=== PATIENT | female | born 2000 | race Two or more races ===

== ENCOUNTER 2022-05-18 15:46 | Emergency (ER) | payer OTHER, SELFPAY ==
[2022-05-18 16:36] VITALS: BP 138/68; PULSE 71; RESP 14; TEMP 37; O2SAT 100
--- NOTE | 2022-05-18 19:43 | ED.GENADULT ---
HPI - General Adult General Chief complaint: Fall Stated complaint: Fall at work Time Seen by Provider: 05/18/22 19:25 History of Present Illness HPI narrative: Patient a 21-year-old female who presents emergency department with chief complaint of head injury. The patient reports she was at work earlier this afternoon slipped fell struck her head on the floor. The patient reports no lacerations no bleeding denies loss of consciousness patient reports she was a little sore afterwards but reports that any discomfort has gone away. Patient reports no nausea no vomiting patient reports that she is not uncomfortable Related Data Home Medications Medication Instructions Recorded Confirmed Adult Multivitamin Extra VitD3 DAILY 05/18/22 citalopram DAILY 05/18/22 cyanocobalamin (vitamin B-12) 5,000 mcg sublingual DAILY 05/18/22 05/18/22 5,000 mcg sublingual tablet (Vitamin B-12) hydrochlorothiazide 12.5 mg tablet 12.5 mg PO DAILY 05/18/22 05/18/22 losartan 50 mg tablet mg DAILY 05/18/22 metoprolol succinate 50 mg mg PO DAILY 05/18/22 tablet,extended release 24 hr oxybutynin chloride DAILY 05/18/22 Allergies Allergy/AdvReac Type Severity Reaction Status Date / Time No Known Allergies Allergy Unknown Unverified 05/18/22 17:38 Review of Systems Review of Systems: A 10 system review of systems was completed on the patient and is negative except for what is stated in the HPI. Nursing and ancillary documentation was reviewed. Exam Narrative: GENERAL: Well-appearing, well-nourished, and in no acute distress. HEAD: Normocephalic, atraumatic. EYES: PERRLA and EOMI. ENT: Nares clear, no rhinorrhea or epistaxis. Mucous membranes moist. NECK: Supple. No C-spine tenderness full range of motion without tenderness CHEST: Clear to auscultation. No respiratory distress. HEART: Regular rate and rhythm. No murmur heard. Normal peripheral pulses. ABDOMEN: Soft, nontender, nondistended, normal active bowel sounds. EXTREMITIES: Normal range of motion. No edema. SKIN: Warm, dry, no rash. NEURO: No focal deficits. Alert and oriented x3. GCS 15 5 out of 5 strength in all extremities PSYCH: Normal mood and affect. Course Course Emergency Course: At this time the patient is GCS 15 showing no focal neurological deficits. This time CT imaging of the head is not warranted family was instructed to precautions for head injury patient does not require wake-up precautions as she has had no loss of consciousness and has no amnesia and is currently neurologically intact. Vital Signs Vital signs: Vital Signs Temperature 37.0 C 05/18/22 16:36 Pulse Rate 71 05/18/22 16:36 Respiratory Rate 14 05/18/22 16:36 Blood Pressure 138/68 05/18/22 16:36 Pulse Oximetry 100 05/18/22 16:36 Oxygen Delivery Room Air 05/18/22 16:36 Temperature 37.0 C 05/18/22 16:36 Pulse Rate 71 05/18/22 16:36 Respiratory Rate 14 05/18/22 16:36 Blood Pressure 138/68 05/18/22 16:36 Pulse Oximetry 100 05/18/22 16:36 Oxygen Delivery Room Air 05/18/22 16:36 Medical Decision Making Vital Signs Vital Signs: Vital Signs Temperature 37.0 C 05/18/22 16:36 Pulse Rate 71 05/18/22 16:36 Respiratory Rate 14 05/18/22 16:36 Blood Pressure 138/68 05/18/22 16:36 Pulse Oximetry 100 05/18/22 16:36 Oxygen Delivery Room Air 05/18/22 16:36 Temperature 37.0 C 05/18/22 16:36 Pulse Rate 71 05/18/22 16:36 Respiratory Rate 14 05/18/22 16:36 Blood Pressure 138/68 05/18/22 16:36 Pulse Oximetry 100 05/18/22 16:36 Oxygen Delivery Room Air 05/18/22 16:36 Discharge Plan Discharge Clinical Impression: Head injury Patient Disposition: Home, Self-Care Condition: Stable Instructions: Antibiotic Form, Head Injury (ED) Prescriptions: No Action citalopram 40 mg DAILY Adult Multivitamin Extra VitD3 DAILY losartan 50 mg Tablet DAILY metoprolo
[2022-05-18 20:00] VITALS: BP 128/71; PULSE 71; RESP 16; O2SAT 100
== END 2022-05-18 20:00 | disposition home or self-care (01) ==
PROVIDERS: Emergency Provider Emergency Medicine
DX: S09.90XA Unspecified injury of head, initial encounter (principal); W01.0XXA Fall on same level from slipping, tripping and stumbling without subsequent striking against object, initial encounter
CPT/HCPCS: 99282